=== PATIENT | female | born 1995 | race African-American/Black ===

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

== ENCOUNTER 2018-03-05 15:27 | Emergency (ER) | payer OTHER ==
[~2018-03-05] VITALS: Ht 160 cm; Wt 59.0 kg
[2018-03-05 15:57] VITALS: Ht 160 cm; Wt 59.0 kg
[2018-03-05 20:30] LABS: BASOPHIL % 0.5 % (0-2); RED CELL DISTRIBUTION WIDTH 14.1 % (11.5-14.5)
[2018-03-05 20:34] LABS: PLATELET COUNT 429 x10^3mcL (130-400)
[2018-03-05 20:36] LABS: CALCIUM 9.1 mg/dL (8.5-10.1); CARBON DIOXIDE 26.1 mmol/L (21-32); CHLORIDE SERUM 101 mmol/L (98-107); CREATININE SERUM 0.7 mg/dL (0.6-1.0); GFR1 > 60 mL/min; GLUCOSE SERUM 81 mg/dL (74-106); POTASSIUM SERUM 3.3 mmol/L (3.5-5.1); SODIUM SERUM 137 mmol/L (136-145)
[2018-03-05 20:43] LABS: ALBUMIN 4.5 g/dL (3.4-5.0); ALKALINE PHOSPHATASE 57 U/L (46-116); ALT/SGPT 17 U/L (14-59); AST/SGOT 8 U/L (15-37); BILIRUBIN TOTAL 1.42 mg/dL (0.20-1.00); LIPASE 126 IU/L (73-393); TOTAL PROTEIN, SERUM 8.3 g/dL (6.4-8.2)
[2018-03-05 23:12] VITALS: BP 125/60
== END 2018-03-05 23:12 | disposition home or self-care (01) ==
LOC: ED 15:27
PROVIDERS: Emergency Medicine
DX: K59.00 Constipation, unspecified (principal); Z88.6 Allergy status to analgesic agent
CPT/HCPCS: 36415; Q9967